=== PATIENT | female | born 1985 | race Two or more races ===

== ENCOUNTER 2021-12-03 08:45 | Inpatient (IN) | payer OTHER ==
[~2021-12-03] VITALS: Ht 157.5 cm; Wt 61.7 kg
[~2021-12-03 08:45] MED LIST: KEFLEX500 MG PO; SYNTHROID75 MCG PO; ULTRACET PO; ZANTAC300 MG PO
[2021-12-05] MEDS ORDERED: SYNTHROID100 MCG (07:51)
[2021-12-06] MEDS ORDERED: Tylenol #3 PO (09:08)
[2021-12-06] MEDS ORDERED: NAPR500T14 PO (09:08)
== END 2021-12-06 11:15 | disposition home or self-care (01) | DRG 741 ==
LOC: O/R 12-05 06:00 → OB/GYN 12-05 06:00 → SURH 12-05 07:00 → OB/GYN 12-05 12:20
PROVIDERS: ADMIT Obstetrics & Gynecology; ATTEND Obstetrics & Gynecology
PROC: 0UQF7ZZ Repair Cul-de-sac, Via Natural or Artificial Opening (ICD-10-PCS; 2021-12-05)
PROC: 0USG7ZZ Reposition Vagina, Via Natural or Artificial Opening (ICD-10-PCS; 2021-12-05)
PROC: 0UT97ZZ Resection of Uterus, Via Natural or Artificial Opening (ICD-10-PCS; principal; 2021-12-05 07:00)
DX: D06.7 Carcinoma in situ of other parts of cervix (principal); D25.1 Intramural leiomyoma of uterus; Z20.822 Contact with and (suspected) exposure to COVID-19

== ENCOUNTER 2024-01-22 10:29 | Emergency (ER) | payer OTHER ==
[~2024-01-22] VITALS: Ht 157.5 cm; Wt 63.5 kg
[~2024-01-22 10:29] MED LIST changes: +NAPR500T14 PO; +SYNTHROID100 MCG; +Tylenol #3 PO
[2024-01-22] MEDS ORDERED: SYNTHROID112 MCG (10:47)
[2024-01-22] MEDS ORDERED: 0.9 % SODIUM CHLORIDE 1,000 ML IV STA (11:11)
[2024-01-22 12:02] LABS: HEMATOCRIT 39.9 % (36.0-45.00); HEMOGLOBIN 13.3 g/dL (12.0-15.00); MEAN CELL VOLUME 87.8 fL (80.00-100.00); MEAN CORPUSCULAR HEMOGLOBIN 29.3 pg (27.00-32.0); MEAN CORPUSCULAR HGB CONC 33.4 g/dl (32.0-36.0); PLATELET COUNT 143 K/uL (150-450); RED BLOOD COUNT 4.54 M/uL (4.00-6.00); RED CELL DISTRIBUTION WIDTH 12.9 % (11.5-14.5)
[2024-01-22 12:35] LABS: URINE APPEARANCE Clear; URINE BILIRRUBIN Negative (NEGATIVE); URINE BLOOD Negative; URINE COLOR Yellow; URINE GLUCOSE Negative (NEGATIVE); URINE KETONE Negative (NEGATIVE); URINE LEUKOCYTE Negative; URINE NITRATE Negative; URINE PROTEIN Negative (NEGATIVE); URINE UROBILINOGEN 0.2 E.U./dl
[2024-01-22 12:36] LABS: URINE BACTERIA 542.8 uL (0.0-1933); URINE EPITHELIAL CELLS 4.4 uL (0.0-38.8); URINE RBC 2.2 uL (0.0-20.8); URINE WBC 4.9 uL (0.0-23.2)
[2024-01-22 12:38] LABS: CALCIUM 9.4 mg/dL (8.5-10.1); CREATININE SERUM 0.73 mg/dL (0.55-1.02); GFR 89.22; POTASSIUM 3.79 mEq/L (3.5-5.1)
== END 2024-01-22 13:14 | disposition home or self-care (01) ==
LOC: ER 10:30
PROVIDERS: Emergency Medicine
DX: K52.89 Other specified noninfective gastroenteritis and colitis (principal); E03.8 Other specified hypothyroidism; A90 Dengue fever [classical dengue]; Z20.822 Contact with and (suspected) exposure to COVID-19
CPT/HCPCS: 36415; 96365; 96366; J7030

== ENCOUNTER 2024-05-20 22:59 | Emergency (ER) | payer OTHER ==
[~2024-05-20] VITALS: Ht 157.5 cm; Wt 62.1 kg
[~2024-05-20 22:59] MED LIST changes: +SYNTHROID112 MCG
[2024-05-20] MEDS ORDERED: SYNTHROID100 MCG PO (23:22)
[2024-05-21] MEDS ORDERED: ONDANSETRON HCL 2 MG/ML VIAL IV STA (00:38)
[2024-05-21] MEDS ORDERED: HYOSCYAMINE SULFATE 0.125 MG TAB.SUBL SL ONE (00:45)
[2024-05-21 01:09] LABS: HEMATOCRIT 37.7 % (36.0-45.00); HEMOGLOBIN 12.8 g/dL (12.0-15.00); MEAN CELL VOLUME 87.5 fL (80.00-100.00); MEAN CORPUSCULAR HEMOGLOBIN 29.7 pg (27.00-32.0); MEAN CORPUSCULAR HGB CONC 33.9 g/dl (32.0-36.0); PLATELET COUNT 174 K/uL (150-450); RED BLOOD COUNT 4.31 M/uL (4.00-6.00); RED CELL DISTRIBUTION WIDTH 13.7 % (11.5-14.5)
[2024-05-21 01:25] LABS: CALCIUM 9.1 mg/dL (8.5-10.1); CREATININE SERUM 0.83 mg/dL (0.55-1.02); GFR 76.53; POTASSIUM 3.71 mEq/L (3.5-5.1)
== END 2024-05-21 04:53 | disposition home or self-care (01) ==
LOC: ER 23:02
DX: R10.11 Right upper quadrant pain (principal)
CPT/HCPCS: 36415; 74022; 96365; 99283; J2405